=== PATIENT | male | born 1950 | race Caucasian/White ===

== ENCOUNTER 2019-06-24 11:43 | Emergency (ER) | payer MEDICARE ==
[~2019-06-24] VITALS: Ht 172.7 cm; Wt 77.1 kg
[2019-06-24 11:58] VITALS: BP 133/73
--- NOTE | 2019-06-24 11:59 | NUR ---
ED Nurse Note: Pt BIBA from work s/p syncopal episode 30 mins prior to arrival. Pt stated symptom started with pt felt "like he was hypotensive, checked BP and it was 80/55 at work", pt then had 3 episodes of diarrhea and then had syncopal episode. Co-worker witnessed and assisted pt to floor. No complaint of pain or injury. Pt lost consciousness x 1 min. Pt was given about 100ml NS en route. BS 245 upon arrival. AOOx4, BP at this time 133/73. Will cont to monitor.
--- NOTE | 2019-06-24 12:08 | Emergency Room Report ---
History of Present Illness General Chief Complaint: Syncope Source: Patient, EMS Present Illness HPI 69-year-old male history of diabetes presents with syncopal episode while on the toilet having diarrhea prior to arrival, patient had 4 episodes of loose stools today, he stood up suddenly passed out for less than a minute, was woken up by his coworker, he thinks he did not his head but is not sure, aggravating factors standing up suddenly alleviating factors none severity is moderate, lasting less than a minute patient presents via EMS. He denies any chest pain shortness of breath abdominal pain nausea vomiting, patient thinks he was a little dehydrated. Allergies: Coded Allergies: No Known Allergies (Unverified , 06/24/19) Patient History Past Medical History: see triage record Reviewed Nursing Documentation: PMH: Agreed; PSxH: Agreed Nursing Documentation-PMH Past Medical History: No History, Except For Hx Hypertension: Yes Hx Diabetes: Yes Review of Systems All Other Systems: negative except mentioned in HPI Physical Exam Vital Signs Date Time Temp Pulse Resp B/P (MAP) Pulse Ox O2 Delivery O2 Flow Rate FiO2 06/24/19 11:42 75 16 135/67 (89) 99 Room Air 06/24/19 11:58 97.7 Sp02 EP Interpretation: reviewed, normal General Appearance: well appearing, no apparent distress, alert Head: normocephalic, atraumatic Eyes: bilateral eye PERRL, bilateral eye EOMI ENT: uvula midline, moist mucus membranes Neck: supple, thyroid normal, supple/symm/no masses Respiratory: lungs clear, no respiratory distress, no retraction, no accessory muscle use Cardiovascular #1: normal peripheral pulses, regular rate, rhythm, no edema, no gallop, no murmur Gastrointestinal: non tender, soft, no guarding, no rebound Musculoskeletal: normal inspection Neurologic: alert, oriented x3 Psychiatric: mood/affect normal Skin: no rash, warm/dry Medical Decision Making Diagnostic Impression: Primary Impression: Syncope Qualified Codes: R55 - Syncope and collapse Additional Impressions: Dehydration CKD (chronic kidney disease) Qualified Codes: N18.9 - Chronic kidney disease, unspecified ER Course 69-year-old male presents with diarrhea concerning for acute gastroenteritis, patient had a syncopal event, most likely secondary to dehydration with a vasovagal component, differential diagnosis includes neurogenic syncope, cardiogenic syncope, dehydration Patient was rehydrated in the ER, CT brain was negative, labs are negative except for slight CKD which may be secondary to his diabetes, he also has a component of dehydration. Patient was resuscitated with 1 L fluids, he felt better Disposition home with return precautions Laboratory Tests Test 06/24/19 12:00 06/24/19 12:53 White Blood Count 15.3 K/UL (4.8-10.8) H Red Blood Count 5.06 M/UL (4.70-6.10) Hemoglobin 14.5 G/DL (14.2-18.0) Hematocrit 43.5 % (42.0-52.0) Mean Corpuscular Volume 86 FL (80-99) Mean Corpuscular Hemoglobin 28.7 PG (27.0-31.0) Mean Corpuscular Hemoglobin Concent 33.4 G/DL (32.0-36.0) Red Cell Distribution Width 12.2 % (11.6-14.8) Platelet Count 338 K/UL (150-450) Mean Platelet Volume 6.2 FL (6.5-10.1) L Neutrophils (%) (Auto) 56.5 % (45.0-75.0) Lymphocytes (%) (Auto) 34.7 % (20.0-45.0) Monocytes (%) (Auto) 8.0 % (1.0-10.0) Eosinophils (%) (Auto) 0.0 % (0.0-3.0) Basophils (%) (Auto) 0.8 % (0.0-2.0) Prothrombin Time 10.3 SEC (9.30-11.50) Prothrombin Time INR 1.0 (0.9-1.1) PTT 22 SEC (23-33) L Sodium Level 138 MMOL/L (136-145) Potassium Level 3.7 MMOL/L (3.5-5.1) Chloride Level 101 MMOL/L (98-107) Carbon Dioxide Level 23 MMOL/L (21-32) Anion Gap 14 mmol/L (5-15) Blood Urea Nitrogen 35 mg/dL (7-18) H Creatinine 1.8 MG/DL (0.55-1.30) H Estimate Glomerular Filtration Rate 37.5 mL/min (>60) Glucose Level 252 MG/DL (74-106) H Calcium Level 9.7 MG/DL (8.5-10.1) Total Bilirubin 0.6 MG/DL (0.2-1.0) Aspartate Amino Transferase (AST) 23 U/L (15-37) Alanine Aminotransferase (ALT) 35 U/L (12-78) Alkaline Phosphatase 56 U/L (46-116) Troponin I 0.000 ng/mL (0.000-0.056) Pro-B-Type Natriuretic Peptide 40 pg/mL (0-125) Total Protein 7.6 G/DL (6.4-8.2) Albumin 3.9 G/DL (3.4-5.0) Globulin 3.7 g/dL Albumin/Globulin Ratio 1.1 (1.0-2.7) Lipase 313 U/L (73-393) Urine Color Pale yellow Urine Appearance Clear Urine pH 5 (4.5-8.0) Urine Specific [place] 1.020 (1.005-1.035) Urine Protein 1+ (NEGATIVE) H Urine Glucose (UA) Negative (NEGATIVE) Urine Ketones 1+ (NEGATIVE) H Urine Blood Negative (NEGATIVE) Urine Nitrite Negative (NEGATIVE) Urine Bilirubin Negative (NEGATIVE) Urine Urobilinogen Normal MG/DL (0.0-1.0) Urine Leukocyte Esterase 2+ (NEGATIVE) H Urine RBC 2-4 /HPF (0 - 0) H Urine WBC 2-4 /HPF (0 - 0) Urine Squamous Epithelial Cells Few /LPF (NONE/OCC) Urine Bacteria Few /HPF (NONE) Urine Opiates Screen Negative (NEGATIVE) Urine Barbiturates Screen Negative (NEGATIVE) Phencyclidine (PCP) Screen Negative (NEGATIVE) Urine Amphetamines Screen Negative (NEGATIVE) Urine Benzodiazepines Screen Negative (NEGATIVE) Urine Cocaine Screen Negative (NEGATIVE) Urine Marijuana (THC) Screen Negative (NEGATIVE) EKG Diagnostic Results EKG Time: 11:47 EP Interpretation: NSR rate 76 RBBB, no acute st elevations, right axis dev Rhythm Strip Diag. Results Rhythm Strip Time: 12:15 EP Interpretation: yes Rate: 74 Rhythm: NSR, no PVC's, no ectopy Chest X-Ray Diagnostic Results Chest X-Ray Diagnostic Results : Chest X-Ray Ordered: Yes # of Views/Limited/Complete: 1 View Indication: Other - syncope EP Interpretation: Yes Interpretation: no consolidation, no effusion, no pneumothorax, no acute cardiopulmonary disease Impression: No acute disease Electronically Signed by: Figueroa Woodard MD CT/MRI/US Diagnostic Results CT/MRI/US Diagnostic Results : Impression CT brain: No acute processes, no evidence of bleed no mass-effect Last Vital Signs Date Time Temp Pulse Resp B/P (MAP) Pulse Ox O2 Delivery O2 Flow Rate FiO2 06/24/19 11:58 97.7 75 14 133/73 100 Room Air Disposition: HOME, SELF-CARE Condition: Stable Referrals: [facility]. [facility] Patient Instructions: Dehydration, Adult, [id number], Syncope Additional Instructions: The patient was provided with discharge instructions, notified to follow-up with a primary care doctor and or specialist in the next 24-48 hours, and to return to the ED if they have worsening of their symptoms. Please note that this report is being documented using [employer] technology. This can lead to erroneous entry secondary to incorrect interpretation by the dictating instrument. Figueroa Woodard MD Jun 24, 2019 12:08
--- NOTE | 2019-06-24 12:13 | NUR ---
ED Nurse Note: Pt stated he could not urinate at this time, will try later. Refused catheter.
--- NOTE | 2019-06-24 12:19 | NUR ---
ED Nurse Note: X-ray at bedside for imaging.
[2019-06-24 12:26] LABS: BASOPHILS % (AUTO) 0.8 % (0.0-2.0); HEMATOCRIT 43.5 % (42.0-52.0); HEMOGLOBIN 14.5 G/DL (14.2-18.0); LYMPHOCYTES % (AUTO) 34.7 % (20.0-45.0); MEAN CORPUSCULAR VOLUME 86 FL (80-99); NEUTROPHILS % (AUTO) 56.5 % (45.0-75.0); PLATELET COUNT 338 K/UL (150-450); RED BLOOD COUNT 5.06 M/UL (4.70-6.10); RED CELL DISTRIBUTION WIDTH 12.2 % (11.6-14.8); WHITE BLOOD COUNT 15.3 K/UL (4.8-10.8)
[2019-06-24 12:31] LABS: ANION GAP 14 mmol/L (5-15); BLOOD UREA NITROGEN 35 mg/dL (7-18); CALCIUM 9.7 MG/DL (8.5-10.1); CARBON DIOXIDE 23 MMOL/L (21-32); CHLORIDE 101 MMOL/L (98-107); CREATININE 1.8 MG/DL (0.55-1.30); POTASSIUM 3.7 MMOL/L (3.5-5.1); SODIUM 138 MMOL/L (136-145)
[2019-06-24 12:41] LABS: ALANINE AMINOTRANSFERASE 35 U/L (12-78); ALBUMIN 3.9 G/DL (3.4-5.0); ALBUMIN/GLOBULIN RATIO 1.1 (1.0-2.7); ALKALINE PHOSPHATASE 56 U/L (46-116); ASPARTATE AMINO TRANSFERASE 23 U/L (15-37); BILIRUBIN,TOTAL 0.6 MG/DL (0.2-1.0)
--- NOTE | 2019-06-24 12:57 | NUR ---
ED Nurse Note: Pt ambulated to the bathroom with steady gait. Light antonella urine noted, sent sample to lab.
[2019-06-24 13:00] LABS: APPEARANCE,URINE CLEAR; BILIRUBIN, URINE NEGATIVE (NEGATIVE); COLOR,URINE PALE YELLOW; GLUCOSE, URINE (UA) NEGATIVE (NEGATIVE); KETONES,URINE 1+ (NEGATIVE); LEUKOCYTE ESTERASE ,URINE 2+ (NEGATIVE); NITRITE,URINE NEGATIVE (NEGATIVE); PH,URINE 5 (4.5-8.0); PROTEIN,URINE 1+ (NEGATIVE); UROBILINOGEN,URINE NORMAL MG/DL (0.0-1.0)
--- NOTE | 2019-06-24 13:02 | NUR ---
ED Nurse Note: Pt complains of pain on R flank at this time, ERMD aware. Awaiting for further order.
[2019-06-24] MEDS ORDERED: Ketorolac 30mg Inj IV ONE (13:15)
[2019-06-24] MEDS ORDERED: oxyCODONE HCL/Acetaminophen 5/325mg ORAL ONE (13:15)
--- NOTE | 2019-06-24 13:52 | Diagnostic Imaging Report ---
Indications: Single episode Technique: Spiral acquisitions obtained through the brain. Angled axial and coronal 5 x 5 mm slices were reconstructed. Total dose length product 1319 mGycm. CTDI vol(s) 62 mGy. Dose reduction achieved using automated exposure control Comparison: None. Findings: No acute intracranial hemorrhage or edema. No mass effect or midline shift. There is age-related enlargement of the ventricles and extra axial CSF spaces. Normal rodriguez-white differentiation. Visualized orbits and sinuses are unremarkable. The mastoids are clear. The calvarium is intact Impression: Age-related volume loss Negative for acute intracranial bleed or mass effect The CT scanner at [facility] is accredited by the [employer] and the scans are performed using protocols designed to limit radiation exposure to as low as reasonably achievable to attain images of sufficient resolution adequate for diagnostic evaluation.
[2019-06-24 14:02] VITALS: BP 121/74
[2019-06-24 14:08] VITALS: BP 121/74
--- NOTE | 2019-06-24 14:08 | NUR ---
ER DISCHARGE NOTE: No adverse reactions from medications given noted/reported. Pain 3/10 at this time. Patient is cleared to be discharged per ERMD, pt is aox4, on room air, with stable vital signs. pt was given dc and prescription instructions, pt was able to verbalize understanding, pt id band and iv site removed without complications. pt is able to ambulate with steady gait. pt took all belongings.
--- NOTE | 2019-06-24 14:20 | Diagnostic Imaging Report ---
Indication: Abnormal chest sounds Technique: One view of the chest Comparison: none Findings: Patient is rotated to the right. Lungs pleural spaces are clear. The heart size is upper limits of normal. Impression: Negative
--- NOTE | 2019-06-27 15:37 | Cardiology Report ---
APPROVED REPORT EKG Measurement Heart [id number] Normal sinus rhythm with sinus arrhythmia Right bundle branch block T wave abnormality, consider inferior ischemia Abnormal ECG
== END 2019-06-24 14:08 | disposition home or self-care (01) ==
LOC: EDBD 11:43 → EMR 12:40
DX: R55 Syncope and collapse (principal); E86.0 Dehydration; E11.22 Type 2 diabetes mellitus with diabetic chronic kidney disease; I12.9 Hypertensive chronic kidney disease with stage 1 through stage 4 chronic kidney disease, or unspecified chronic kidney disease; N18.9 Chronic kidney disease, unspecified
CPT/HCPCS: 36415; 70450; 71045; 80053; 80307; 81003; 83690; 83880; 84484; 85025; 85610; 85730; 93005; 96361; 96374; 99284; J1885